=== PATIENT | female | born 1960 | race Caucasian/White ===

== ENCOUNTER 2016-07-20 06:43 | Day surgery (SDC) | payer BC ==
[~2016-07-20] VITALS: Ht 154.9 cm; Wt 62.1 kg
[2016-07-20 07:17] VITALS: BP 125/63
[2016-07-20 11:04] VITALS: BP 128/63
[2016-07-20 12:00] VITALS: BP 128/63
== END 2016-07-20 12:23 | disposition home or self-care (01) ==
LOC: SDC 06:43
PROC: 0HBAXZZ Excision of Inguinal Skin, External Approach (ICD-10-PCS; principal; 2016-07-20)
DX: D07.1 Carcinoma in situ of vulva (principal)
CPT/HCPCS: 88305; J0131; J0690; J1100; J2250; J2405; J2765; J3010; S0020